=== PATIENT | male | born 1955 | race Caucasian/White ===

== ENCOUNTER 2017-11-07 15:26 | Inpatient (IN) | payer OTHER ==
[~2017-11-07] VITALS: Ht 182.9 cm; Wt 99.0 kg
[2017-11-07 17:07] LABS: BASOPHILS # (AUTO) 0.05 x10^3/uL (0-0.1); BASOPHILS % (AUTO) 0 % (0-1); EOSINOPHILS # (AUTO) 0.08 x10^3/uL (0-0.4); EOSINOPHILS % (AUTO) 1 % (1-7); LYMPHOCYTES # (AUTO) 2.56 x10^3/uL (1-3.4); LYMPHOCYTES % (AUTO) 22 % (22-44); MD NO; MEAN CORPUSCULAR HEMOGLOBIN 32.1 pg (27.5-34.5); MEAN CORPUSCULAR HGB CONC 34.1 g/dL (33.2-36.2); MEAN PLATELET VOLUME 7.7 fL (7.4-10.4); MONOCYTES # (AUTO) 0.94 x10^3/uL (0.2-0.8); MONOCYTES % (AUTO) 8 % (2-9); NEUTROPHILS % (AUTO) 69 % (42-75); PLATELET COUNT 261 x10^3/uL (130-400); RED BLOOD COUNT 5.01 x10^6/uL (4.38-5.82); RED CELL DISTRIBUTION WIDTH 12.9 % (9.4-14.8)
[2017-11-07 17:17] LABS: ALBUMIN 3.9 g/dL (3.4-5.0); ANION GAP 8 mmol/L (5-15); CALCIUM 9.3 mg/dL (8.5-10.1); CHLORIDE 105 mmol/L (98-107); CREATININE 1.26 mg/dL (0.7-1.3)
[2017-11-07 17:21] LABS: TROPONIN I < 0.015 ng/mL (0.000-0.045)
[2017-11-07] MEDS ORDERED: SODIUM CHLORIDE 0.9% 1,000 ML IV ONE (18:29)
[2017-11-07] MEDS ORDERED: ONDANSETRON 2MG/ML, 2ML IVPush PRN ×2 (18:30→19:30)
[2017-11-07] MEDS ORDERED: PLEASE ENTER ALLERGIES MC SCH (18:38)
[2017-11-07] MEDS ORDERED: GABA300C10 PO (18:42)
[2017-11-07] MEDS ORDERED: QUIN20TA17 PO (18:43)
[2017-11-07] MEDS ORDERED: ACETAMINOPHEN 325 MG TABLET PO PRN (19:30)
[2017-11-07 20:56] VITALS: BP_SYST 117; BP_SYST 121; BP_SYST 127; BP_DIAS 74; BP_DIAS 78; BP_DIAS 87
[2017-11-07] MEDS: SODIUM CHLORIDE 0.9% 1,000 ML IV SCH (22:07)
[2017-11-07 23:32] LABS: TROPONIN I < 0.015 ng/mL (0.000-0.045)
[2017-11-08] VITALS (7 sets, daily range): BP systolic 110–148; BP diastolic 69–87
[2017-11-08] MEDS: SODIUM CHLORIDE 0.9% 1,000 ML IV SCH ×2 (05:21→20:58)
[2017-11-08 06:12] LABS: CHOL/HDL RATIO 4.2; CHOLESTEROL, TOTAL 183 mg/dL (140-239); HDL CHOL % 24 % (26-37); HDL CHOLESTEROL (DIRECT) 44 mg/dL (40-60); LDL CHOLESTEROL,CALCULATED 118 mg/dL (54-169); LDL/HDL RATIO 2.7 (0.5-3.0); TRIGLYCERIDES 106 mg/dL (50-200); TROPONIN I < 0.015 ng/mL (0.000-0.045); VLDL CHOLESTEROL 21 mg/dL (0-25)
[2017-11-08] MEDS ORDERED: QUINAPRIL 20MG TABLET PO SCH (09:00)
[2017-11-08] MEDS: GABAPENTIN 300 MG CAPSULE PO SCH (20:58)
[2017-11-08] MEDS ORDERED: GABAPENTIN 300 MG CAPSULE PO SCH (21:00)
[2017-11-09] VITALS (8 sets, daily range): BP systolic 115–146; BP diastolic 65–89
[2017-11-09 05:40] LABS: BASOPHILS # (AUTO) 0.05 x10^3/uL (0-0.1); BASOPHILS % (AUTO) 1 % (0-1); EOSINOPHILS # (AUTO) 0.26 x10^3/uL (0-0.4); EOSINOPHILS % (AUTO) 4 % (1-7); LYMPHOCYTES # (AUTO) 2.29 x10^3/uL (1-3.4); LYMPHOCYTES % (AUTO) 36 % (22-44); MD NO; MEAN CORPUSCULAR HGB CONC 33.9 g/dL (33.2-36.2); MEAN CORPUSCULAR VOLUME 94.6 fL (81-97); MEAN PLATELET VOLUME 7.4 fL (7.4-10.4); MONOCYTES # (AUTO) 0.59 x10^3/uL (0.2-0.8); MONOCYTES % (AUTO) 9 % (2-9); NEUTROPHILS # (AUTO) 3.24 x10^3/uL (1.8-6.8); NEUTROPHILS % (AUTO) 50 % (42-75); PLATELET COUNT 233 x10^3/uL (130-400); RED BLOOD COUNT 4.87 x10^6/uL (4.38-5.82); RED CELL DISTRIBUTION WIDTH 12.6 % (9.4-14.8)
[2017-11-09 05:46] LABS: ALANINE AMINOTRANSFERASE 31 U/L (12-78); ALBUMIN 3.6 g/dL (3.4-5.0); ANION GAP 7 mmol/L (5-15); CALCIUM 8.5 mg/dL (8.5-10.1); CHLORIDE 108 mmol/L (98-107); CREATININE 0.83 mg/dL (0.7-1.3)
[2017-11-09 05:49] LABS: ALKALINE PHOSPHATASE 56 U/L (45-117); BILIRUBIN,TOTAL 0.9 mg/dL (0.2-1.0); TOTAL PROTEIN 6.5 g/dL (6.4-8.2)
[2017-11-09] MEDS ORDERED: REGADENOSON 0.4 MG/5 ML SYRINGE ONE (09:06)
[2017-11-09] MEDS: SODIUM CHLORIDE 0.9% 1,000 ML IV SCH ×2 (12:46→21:47)
[2017-11-09] MEDS: GABAPENTIN 300 MG CAPSULE PO SCH (12:53)
[2017-11-09] MEDS ORDERED: GABAPENTIN 300 MG CAPSULE PO SCH (21:00)
[2017-11-10 00:30] VITALS: BP 121/78
[2017-11-10] MEDS: SODIUM CHLORIDE 0.9% 1,000 ML IV SCH ×2 (05:23→12:00)
[2017-11-10 08:45] VITALS: BP 131/82
[2017-11-10 09:08] LABS: ALBUMIN 3.9 g/dL (3.4-5.0); ANION GAP 8 mmol/L (5-15); CHLORIDE 108 mmol/L (98-107); CREATININE 0.88 mg/dL (0.7-1.3)
[2017-11-10 09:27] LABS: BASOPHILS # (AUTO) 0.04 x10^3/uL (0-0.1); BASOPHILS % (AUTO) 1 % (0-1); EOSINOPHILS # (AUTO) 0.21 x10^3/uL (0-0.4); EOSINOPHILS % (AUTO) 4 % (1-7); LYMPHOCYTES % (AUTO) 31 % (22-44); MD NO; MEAN CORPUSCULAR HGB CONC 34.3 g/dL (33.2-36.2); MEAN CORPUSCULAR VOLUME 93.2 fL (81-97); MEAN PLATELET VOLUME 7.4 fL (7.4-10.4); MONOCYTES # (AUTO) 0.56 x10^3/uL (0.2-0.8); MONOCYTES % (AUTO) 10 % (2-9); NEUTROPHILS # (AUTO) 3.19 x10^3/uL (1.8-6.8); NEUTROPHILS % (AUTO) 55 % (42-75); PLATELET COUNT 244 x10^3/uL (130-400); RED BLOOD COUNT 5.07 x10^6/uL (4.38-5.82); RED CELL DISTRIBUTION WIDTH 12.6 % (9.4-14.8)
== END 2017-11-10 13:34 | disposition home or self-care (01) | DRG 312 ==
LOC: ED 18:29 → EDIP 18:30 → 4EST 20:27
PROVIDERS: ADMIT Hospitalist; ATTEND Hospitalist
DX: R55 Syncope and collapse (principal); G62.9 Polyneuropathy, unspecified; D72.829 Elevated white blood cell count, unspecified; Z96.642 Presence of left artificial hip joint; G89.29 Other chronic pain; G40.909 Epilepsy, unspecified, not intractable, without status epilepticus; M54.9 Dorsalgia, unspecified; I10 Essential (primary) hypertension; Z87.891 Personal history of nicotine dependence
CPT/HCPCS: 36415; 70450; 70544; 70548; 70553; 71045; 78452; 80048; 80053; 80061; 82040; 83735; 84100; 84484; 85025; 93005; 93017; 93306; 95819; 99285; J2785; A9502; C9898; J7030